=== PATIENT | female | born 1970 | race Caucasian/White ===

== ENCOUNTER 2019-07-03 07:25 | Emergency (ER) | payer OTHER ==
[~2019-07-03] VITALS: Ht 165.1 cm; Wt 101.2 kg
[2019-07-03 07:28] VITALS: BP 111/61
--- NOTE | 2019-07-03 07:28 | NUR ---
Patient ambulated to bed 9. RN evaluating patient at bedside.
--- NOTE | 2019-07-03 07:44 | NUR ---
Dr. Li evaluating patient at bedside.
--- NOTE | 2019-07-03 07:46 | NUR ---
PT BIB SELF C/O COLD SYMPTOMS AND CP X2 DAYS. PT REPORTS PRODUCTIVE COUGH WITH YELLOW PHLEM, RR EVEN AND NON-LABORED, BREATH SOUNDS CLEAR THROUGHOUT. PT REPORTS SHARP MIDSTERNAL INTERMITENT CP THAT INCREASES WITH COUGH. HEART RRR, CAP REFIL <3 SEC, NO EDEMA PRESENT. PT AAOX4. VSS. MEDHX:DENIES RX:DENIES
--- NOTE | 2019-07-03 07:54 | NUR ---
Patient discharged with v/s stable. Written and verbal after care instructions given and explained. Patient alert, oriented and verbalized understanding of instructions. Ambulatory with steady gait. All questions addressed prior to discharge. ID band removed. Patient advised to follow up with PMD. Rx of PROMETHAZINE AND AMOXICILLIN given. Patient educated on indication of medication including possible reaction and side effects. Opportunity to ask questions provided and answered.
== END 2019-07-03 07:54 | disposition home or self-care (01) ==
LOC: MED 07:25
DX: J02.8 Acute pharyngitis due to other specified organisms (principal)
CPT/HCPCS: 81025; 99283

== ENCOUNTER 2020-09-30 15:28 | Emergency (ER) | payer OTHER ==
[~2020-09-30] VITALS: Ht 165.1 cm; Wt 113.4 kg
[2020-09-30 15:42] VITALS: BP 147/75
[2020-09-30 16:23] VITALS: BP 147/75
== END 2020-09-30 16:33 | disposition home or self-care (01) ==
LOC: MED 15:28
DX: Z20.828 Contact with and (suspected) exposure to other viral communicable diseases (principal)
CPT/HCPCS: 99283; U0003

== ENCOUNTER 2023-10-25 19:55 | Emergency (ER) | payer OTHER ==
[~2023-10-25] VITALS: Ht 162.6 cm; Wt 102.1 kg
[2023-10-25 20:20] VITALS: BP 122/76; PULSE 79; RESP 16; TEMP 98.5; O2SAT 97
[2023-10-25 21:54] VITALS: BP 110/53; PULSE 57; RESP 15; TEMP 98.1; O2SAT 98
[2023-10-25] MEDS ORDERED: LIDOCAINE 2% 1000 MG/50 ML VIAL INJ ONE (23:40)
[2023-10-25] MEDS ORDERED: LIDOCAINE MPF 1% 5 ML ONE (23:41)
[2023-10-26] MEDS ORDERED: SULF-59 PO (00:02)
== END 2023-10-26 00:14 | disposition home or self-care (01) ==
LOC: MED 19:55
DX: L02.413 Cutaneous abscess of right upper limb (principal); Z79.899 Other long term (current) drug therapy
CPT/HCPCS: 10060; 99284; J2001

== ENCOUNTER 2023-10-27 18:48 | Emergency (ER) | payer OTHER ==
[~2023-10-27] VITALS: Ht 162.6 cm; Wt 125.2 kg
[~2023-10-27 18:48] MED LIST: SULF-59 PO
[2023-10-27 19:10] VITALS: BP 124/85; PULSE 68; RESP 18; TEMP 98; O2SAT 99
== END 2023-10-27 19:56 | disposition home or self-care (01) ==
LOC: MED 18:48
DX: L02.413 Cutaneous abscess of right upper limb (principal); Z79.899 Other long term (current) drug therapy
CPT/HCPCS: 99282

== ENCOUNTER 2024-04-06 06:43 | Emergency (ER) | payer OTHER ==
[~2024-04-06] VITALS: Ht 160 cm; Wt 102.1 kg
[2024-04-06 06:53] VITALS: BP 133/78; PULSE 62; RESP 18; TEMP 98.2; O2SAT 100
[2024-04-06] MEDS: KETOROLAC 60 MG/2 ML VIAL IM ONE (07:27)
[2024-04-06] MEDS ORDERED: IBUP-2213 PO (07:34)
[2024-04-06 07:39] VITALS: BP 133/78; PULSE 62; RESP 18; TEMP 98.2; O2SAT 100
== END 2024-04-06 07:41 | disposition home or self-care (01) ==
LOC: MED 06:43
DX: M79.622 Pain in left upper arm (principal); R20.0 Anesthesia of skin; Z79.899 Other long term (current) drug therapy
CPT/HCPCS: 96372; 99283; J1885

== ENCOUNTER 2024-04-25 06:32 | Outpatient (CLI) | payer OTHER ==
[~2024-04-25 06:32] MED LIST changes: +IBUP-2213 PO
[2024-04-25 08:04] LABS: BASOPHILS % (AUTO) 0.2 % (0.0-2.0); EOSINOPHILS # (AUTO) 0.2 K/uL (0-0.4); EOSINOPHILS % (AUTO) 2.3 % (0.0-4.0); HEMATOCRIT 40.9 % (36-48); HEMOGLOBIN 13.7 g/dL (12.0-16.0); LYMPHOCYTES # (AUTO) 2.3 K/uL (2.5-16.5); LYMPHOCYTES % (AUTO) 34.8 % (20.5-51.1); MEAN CORPUSCULAR HEMOGLOBIN 31 pg (27-31); MEAN CORPUSCULAR HGB CONC 33 g/dL (33-37); MEAN CORPUSCULAR VOLUME 92.8 fL (80-94); MONOCYTES # (AUTO) 0.5 K/uL (0.8-1.0); NEUTROPHILS # (AUTO) 3.7 K/uL (1.8-7.7); NEUTROPHILS % (AUTO) 54.7 % (42.2-75.2); PLATELET COUNT (AUTO) 247 K/uL (140-450); RED BLOOD CELL COUNT(AUTO) 4.41 MIL/uL (4.20-5.40); RED CELL DISTRIBUTION WIDTH 13.7 % (11.6-13.7); WHITE BLOOD COUNT (AUTO) 6.7 K/uL (4.8-10.8)
[2024-04-25 08:49] LABS: ANION GAP 7.2 (8-16); CALCIUM 9.1 mg/dL (8.5-10.1); CHOL/HDL RATIO 3.9 (1-4.5); CREATININE 0.6 mg/dL (0.6-1.3); POTASSIUM 4.2 mmol/L (3.5-5.1); THYROID STIMULATING HORMONE 3.48 uIU/mL (0.34-3.74); TOTAL BILIRUBIN 0.5 mg/dL (0.0-1.0); TOTAL PROTEIN, SERUM 6.5 g/dL (6.4-8.2)
[2024-04-26 08:08] LABS: HEMOGLOBIN A1C 5.5 % (4.8-5.6); T4 (THYROXINE) 6.2 ug/dL (4.5-12.0)
== END 2024-04-25 20:06 | disposition home or self-care (01) ==
LOC: MLB 06:32
DX: Z01.89 Encounter for other specified special examinations (principal)
CPT/HCPCS: 36415; 80053; 83036; 84436; 84443; 85025